=== PATIENT | female | born 1995 ===

== ENCOUNTER 2019-06-25 07:56 | Emergency (ER) | payer OTHER ==
--- NOTE | 2019-06-25 08:20 | UC ---
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 States last 24 she's had progressive fatigue, head congestion, sore throat. Patient reports mild nausea but no vomiting. Patient has any diarrhea or abdominal pain. Patient states her ears feel plugged. Patient with a nonproductive cough Patient has been taking DayQuil and NyQuil with the last dose at 5 AM. Patient states she feels warm but has not checked her temperature. Patient did not get the flu vaccine this year. 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 Patient states she is not . Patient's medications is entered in the EMR by the chassis driver were reviewed. - History of Current Complaint Chief Complaint: UCGeneralIllness Stated Complaint: SORE THROAT Hx Obtained From: Patient Hx Last Menstrual Period: no period Severity: Moderate Pain Intensity: 9 Pain Scale Used: 0-10 Numeric - Allergies/Home Medications Allergies/Adverse Reactions: Allergies Allergy/AdvReac Type Severity Reaction Status Date / Time amoxicillin Allergy Hives Verified 06/25/19 08:10 Home Medications: Home Medications Phenylephrine/Dm/Acetaminop/GG [Multi-Symptom Cold Caplet] 1 each PO ONCE [History Confirmed 06/25/19] PMH/Surg Hx/FS Hx/Imm Hx Previously Healthy: Yes - Surgical History Surgical History: Yes Surgery Procedure, Year, and Place: ear tubes as a child - Family History Known Family History: Positive: Non-Contributory - Social History Occupation: Student Lives: Dormitory/Roommates Alcohol Use: Occasionally Substance Use Type: None Smoking Status (MU): Never Smoked Tobacco Review of Systems All Other Systems Reviewed And Are Negative: Yes Constitutional: Positive: Fever - Tactile, Fatigue Skin: Positive: Negative ENT: Positive: Sore Throat, Ear Ache, Nasal Discharge, Sinus Congestion, Sinus Pain/Tenderness Respiratory: Positive: Cough - Clear phlegm Cardiovascular: Positive: Negative Gastrointestinal: Positive: Negative Physical Exam - Summary Physical Exam Summary: Vital Signs Reviewed: Yes A+Ox3, tired appearing Eyes: Conjunctiva Clear, JACE. EOM intact and full ENT: Hearing grossly normal TM x 2 clear,turbinates inflammed and boggy, + PND , mmoist, uvula midline, no exudate, no erythema mild erythema Neck: Positive: Supple Respiratory: Positive: No respiratory distress, No accessory muscle use + CTA throughout no w/r Cardiovascular: RRR nl s1, s2 no m/r CBT <2 sec abd soft + BS nt/nd no guarding, no distension Musculoskeletal Exam: HYATT x 4 without difficulty Strength Intact, ROM Intact Neurological: Positive: Alert, + sensation throughout Psychological: Positive: Normal Response To examiner Skin: Positive: no rash, no ecchymosis Vital Signs: Initial Vital Signs Temp 98 F 06/25/19 08:11 Pulse 80 06/25/19 08:11 Resp 18 06/25/19 08:11 BP 97/64 06/25/19 08:11 Pulse Ox 98 06/25/19 08:11 Re-Evaluation - Re-Evaluation First Eval Comment: Pt with increasing temp - Motrin given. receiving IVF. urine reviewed. mom at bedside Second Eval Comment: Pt states feeling better. reviewed influenza treatment / plan of care with pt - mom at bedside. I spoke with RN at [facility] - no special instructions for students at this time Third Eval Re-Evaluation Time: 10:24 Comment: Call back from [facility] RN - Elvi Davies - requesting pt's name. I asked pt in presence of mom and SO - permission given. pt ate popsicle - no n/v. reports feeling better. will d/c with Tamiflu. VS improved Throat Pain/Nasal Course/Dx - Course Course Of Treatment: Patient presents to urgent care with 24 hours progressive fatigue and sore throat and congestion. Patient taken DayQuil and NyQuil with little improvement. Patient denies sick contacts physical [employer] student. On exam vital signs show slighty decreased BP. Patient with some mild pallor. During exam patient's age refill head was laid back down. Strep throat was negative. We'll check flu and blood sugar. We'll place IV and give patient a liter fluid. Offered to talk to pt's parents - she declined will check urine and when she is able - pt aware - Differential Dx/Diagnosis Provider Diagnosis: Influenza Discharge ED - Sign-Out/Discharge Documenting (check all that apply): Patient Departure All imaging exams completed and their final reports reviewed: No Studies - Discharge Plan Condition: Stable Disposition: HOME Prescriptions: Oseltamivir Phosphate [Tamiflu] 75 mg PO BID #10 capsule Patient Education Materials: Influenza (ED) Referrals: [facility] [Provider Group] No Primary Care Phys,[facility] [Primary Care Provider] - Additional Instructions: - Stay well hydrated. Drink plenty of non-alcoholic, non-caffinated beverages. - Alternate ibuprofen (Advil, Motrin) 600mg and Tylenol every 3 hours for pain or fever. Take with food. Do NOT take for more than 4-5 days. - These infections are spread by secretions - do NOT share eating or drinking utensils - clean items you share with other people such as cell phones, computer mouse, TV remote, computer tablets,etc. Once you start to feel better, change your toothbrush and your pillowcase. - Take Tamiflu as prescribed - get plenty of restful sleep - humidify the air in the room where you sleep - boil water, run a hot steam shower, vaporizer, cups of water by heat register - okay to take over the counter decongestant and cough medication - contact your doctor or return with questions or concerns - Billing Disposition and Condition Condition: STABLE Disposition: Home
[2019-06-25] MEDS ORDERED: NS 0.9% 1000 ML** 1,000 ML IV ONE (08:48)
[2019-06-25 08:52] LABS: Influenza B Molecular POSITIVE (Negative)
[2019-06-25] MEDS ORDERED: Ibuprofen TAB* 600 MG PO ONE (09:00)
[2019-06-25 11:01] VITALS: BP 117/68
== END 2019-06-25 11:10 | disposition home or self-care (01) ==
LOC: UCEAST 07:56
DX: J11.1 Influenza due to unidentified influenza virus with other respiratory manifestations (principal); R09.81 Nasal congestion; R09.89 Other specified symptoms and signs involving the circulatory and respiratory systems; Z88.0 Allergy status to penicillin
CPT/HCPCS: 81003; 84702; 87651; 96360; 99202; A9270-GY; G0463

== ENCOUNTER 2019-06-27 11:43 | Emergency (ER) | payer OTHER ==
[2019-06-27] MEDS ORDERED: NS 0.9% 1000 ML** 1,000 ML IV ONE (13:24)
[2019-06-27] MEDS ORDERED: Ondansetron INJ* 2 MG/ML VIAL IV ONE (13:24)
[2019-06-27 15:29] VITALS: BP 122/80
--- NOTE | 2019-06-30 05:45 | ED ---
Nausea/Vomiting/Diarrhea HPI - HPI Summary HPI Summary: Pt. is a 23 y.o female who presents to the ER for vomiting x 2. Pt. states she was recently dx with influenza and is taking tamiflu. Pt. states today she had two episodes of vomiting. Denies abd. pain, diarrhea, urinary sxs. No pas medical hx. Pt. concerned with dehydration. Sxs are mild in severity. No current modifying factors. - History of Current Complaint Chief Complaint: EDFluSymptoms Stated Complaint: FLU SYMPTOMS PER PT Time Seen by Provider: 06/27/19 12:57 Hx Obtained From: Patient Hx Last Menstrual Period: no period Pain Intensity: 0 Pain Scale Used: 0-10 Numeric - Allergies/Home Medications Allergies/Adverse Reactions: Allergies Allergy/AdvReac Type Severity Reaction Status Date / Time amoxicillin Allergy Hives Verified 06/27/19 11:49 PMH/Surg Hx/FS Hx/Imm Hx Previously Healthy: Yes - Surgical History Surgery Procedure, Year, and Place: ear tubes as a child Infectious Disease History: No Infectious Disease History: Denies: Traveled Outside the [place] in Last 30 Days - Family History Known Family History: Positive: Non-Contributory - Social History Occupation: Student Lives: With Family Alcohol Use: Occasionally Substance Use Type: Reports: None Smoking Status (MU): Never Smoked Tobacco Review of Systems Constitutional: Negative Positive: Fever Eyes: Negative ENT: Negative Cardiovascular: Negative Respiratory: Negative Positive: Vomiting, Nausea. Negative: Abdominal Pain, Diarrhea Genitourinary: Negative Negative: dysuria Skin: Negative Neurological: Negative All Other Systems Reviewed And Are Negative: Yes Physical Exam Triage Information Reviewed: Yes Vital Signs On Initial Exam: Initial Vitals Temp Pulse Resp BP Pulse Ox 97.5 F 70 16 124/78 97 06/27/19 11:46 06/27/19 11:46 06/27/19 11:46 06/27/19 11:46 06/27/19 11:46 Vital Signs Reviewed: Yes Appearance: Positive: Well-Appearing - Pt. sitting in chair in NAD. Mother present. Skin: Positive: Warm, Dry Head/Face: Positive: Normal Head/Face Inspection Eyes: Positive: Normal, EOMI, JACE, Conjunctiva Clear ENT: Positive: Pharynx normal, TMs normal, Other - Oral mucosa dry and lips are chapped. Respiratory/Lung Sounds: Positive: Clear to Auscultation, Breath Sounds Present Cardiovascular: Positive: Normal, RRR Abdomen Description: Positive: Nontender, Soft Neurological: Positive: Normal, CN Intact II-III Psychiatric: Positive: Affect/Mood Appropriate Procedures - Sedation Patient Received Moderate/Deep Sedation with Procedure: No Diagnostics - Vital Signs Vital Signs Temp Pulse Resp BP Pulse Ox 06/27/19 15:28 99.5 F 54 16 122/80 99 06/27/19 11:46 97.5 F 70 16 124/78 97 - Laboratory Lab Statement: Any lab studies that have been ordered have been reviewed, and results considered in the medical decision making process. Naus/Vom/Diarrhea Course/Dx - Course Course Of Treatment: Pt. presenting with known influenza and two episodes of vomiting. She is afebrile and well appearing. No palpable abd. pain. Pt. was given a liter of NS and zofran. On reexam pt. feeling better and is laughing with family and friend. Tolerating PO. Will dc home with rx for zofran. To fu with [facility] on sunday. Will return to er if sxs change or worsen. - Differential Dx/Diagnosis Differential Diagnoses - Female: Gastroenteritis (Viral), Gastroenteritis ( Bacterial), Vomiting Provider Diagnosis: Nausea & vomiting, Influenza Condition At Discharge: Improved Discharge ED - Sign-Out/Discharge Documenting (check all that apply): Patient Departure - Discharge Plan Condition: Improved Disposition: HOME Prescriptions: Ondansetron TAB* [Zofran 4 MG Tab*] 4 mg PO Q6H PRN #12 tab PRN Reason: Nausea Patient Education Materials: Influenza (ED), Acute Nausea and Vomiting (ED) Referrals: [facility] [Outside] Additional Instructions: Schedule a follow up appointment with [facility] for Sunday Increase fluids and rest Zofran as needed for nausea/vomiting Return to ER for uncontrollable vomiting, abdominal pain, fever, or if concerned - Billing Disposition and Condition Condition: IMPROVED Disposition: Home
== END 2019-06-27 15:28 | disposition home or self-care (01) ==
LOC: ED 11:43
DX: J11.1 Influenza due to unidentified influenza virus with other respiratory manifestations (principal); R11.2 Nausea with vomiting, unspecified; Z88.0 Allergy status to penicillin
CPT/HCPCS: 96361; 96374; 99282; J2405